=== PATIENT | female | born 1955 | race Caucasian/White ===

== ENCOUNTER 2018-05-05 16:32 | Outpatient (CLI) | payer BC ==
--- NOTE | 2018-05-05 19:41 | RAD ---
LEFT FOOT THREE VIEWS: 05/05/2018 COMPARISON: No prior films are available for comparison. FINDINGS: There is a fracture at the base of the fifth metatarsal. There is very slight distraction of the fra cture fragment from the remainder of the bone, but minimal lateral displacement. Some mild degenerat amanda changes may be present between the navicula and first cuneiform. Degenerative changes are also s uggested in the tarsometatarsal joints in general, though this is not shown to the best advantage. N o other fractures are definitely appreciated. There is a line in the proximal phalanx of the great t oe on one view, but I could not substantiate it on other views. This should be correlated with the c linical exam. If there were pain here, then isolated great toe views would be suggested. IMPRESSION: 1. Fracture at the base of the fifth metatarsal, apparently fairly recent. Very slight distraction. 2. Equivocal line in the proximal phalanx of the great toe, on one view only, probably artifactual, but the finding should be compared with the physical examination to determine if followup is needed o r not. 3. Some intertarsal/tarsometatarsal degenerative change, as noted. CODE T POS: HOME
== END 2018-05-05 16:33 | disposition home or self-care (01) ==
LOC: BURRAD 16:32
PROVIDERS: ATTEND Podiatrist Foot & Ankle Surgery
DX: S92.352A Displaced fracture of fifth metatarsal bone, left foot, initial encounter for closed fracture (principal); M19.072 Primary osteoarthritis, left ankle and foot

== ENCOUNTER 2018-06-23 15:41 | Outpatient (CLI) | payer MEDICARE ==
--- NOTE | 2018-06-27 07:41 | RAD ---
LEFT FOOT THREE VIEWS: 06/23/18 Comparison is made with the prior study of 05/05/18. There has been partial healing of the fracture at the base of the fifth metatarsal. It is not complet karl healed as of yet. The equivocal line in the proximal phalanx of the great toe is again noted and has not changed. I suspect that there may have been an old injury here in the distant past. As noted previously, there are degenerative changes in the tarsometatarsal joints. No new fractures were appr eciated. IMPRESSION: Minimal change since the prior study. Partial healing of the fifth metatarsal fracture. No other acut e findings. POS: HOME
== END 2018-06-23 15:42 | disposition home or self-care (01) ==
LOC: BURRAD 15:41
PROVIDERS: ATTEND Podiatrist Foot & Ankle Surgery
DX: S92.352D Displaced fracture of fifth metatarsal bone, left foot, subsequent encounter for fracture with routine healing (principal)

== ENCOUNTER 2018-07-21 15:17 | Outpatient (CLI) | payer MEDICARE ==
--- NOTE | 2018-07-21 22:43 | RAD ---
LEFT FOOT THREE VIEWS: 07/21/18 Comparison is made with the prior study of 06/23. Again seen is the fracture at the base of the fifth metatarsal. While there has probably been a little bit of healing in the interval, the fracture line is still quite apparent. Elsewhere, degenerative changes are prominent in some of the tarsometatarsa l joints. IMPRESSION: Slow healing of the fifth metatarsal fracture. POS: HOME
== END 2018-07-21 15:18 | disposition home or self-care (01) ==
LOC: BURRAD 15:17
PROVIDERS: ATTEND Podiatrist Foot & Ankle Surgery
DX: S92.352D Displaced fracture of fifth metatarsal bone, left foot, subsequent encounter for fracture with routine healing (principal)

== ENCOUNTER 2020-11-13 15:27 | Outpatient (CLI) | payer MEDICARE ==
--- NOTE | 2020-11-13 19:35 | RAD ---
LUMBAR SPINE FIVE VIEWS: 11/13/20 Comparison is made with the 02/03/10 study. No acute fracture was present, though the superior end plate of L4 is beginning to look scalloped. In a patient with osteopenia, this could be the beginnings of some slight compression. The same might b e said for the superior portion of T11. The major chemical cell changer time is evidence of disc space narrowing with disc degeneration at L3-L4 and L4 -L5. There have been substantial changes here in the interval. MRI would be most sensitive at looking for any neural impingement. The SI joints appear normal. The aorta shows calcification, a little mor e so than it did in 2010. IMPRESSION: 1. Interval significant disc degeneration at L3-L4 and L4-L5. 2. Scalloping of the superior end plate of L3 and possibly T11. Given osteopenia, the beginnings of some early compression may be starting here. POS: HOME
== END 2020-11-13 15:28 | disposition home or self-care (01) ==
LOC: BURRAD 15:27
PROVIDERS: ATTEND Family Medicine
DX: M51.16 Intervertebral disc disorders with radiculopathy, lumbar region (principal); G89.29 Other chronic pain; R26.81 Unsteadiness on feet
CPT/HCPCS: 72110

== ENCOUNTER 2022-01-04 18:04 | Emergency (ER) | payer MEDICARE ==
[2022-01-04] MEDS ORDERED: Ketamine 50 MG/ML (10ML VIAL) ONE (19:01)
== END 2022-01-04 20:56 | disposition home or self-care (01) ==
LOC: BURERS 18:04
DX: S82.841A Displaced bimalleolar fracture of right lower leg, initial encounter for closed fracture (principal); I10 Essential (primary) hypertension; E03.9 Hypothyroidism, unspecified; W18.30XA Fall on same level, unspecified, initial encounter; X50.1XXA Overexertion from prolonged static or awkward postures, initial encounter; Y92.512 Supermarket, store or market as the place of occurrence of the external cause
CPT/HCPCS: 27810; 99152

== ENCOUNTER 2022-10-12 15:31 | Outpatient (CLI) | payer MEDICARE | END 2022-10-12 15:32 | disposition home or self-care (01) | LOC: BURRAD 15:31 | PROVIDERS: ATTEND Family Medicine | DX: M25.471 Effusion, right ankle (principal); Z98.890 Other specified postprocedural states ==

== ENCOUNTER 2023-05-27 10:54 | Emergency (ER) | payer MEDICARE | END 2023-05-27 12:15 | disposition home or self-care (01) | LOC: BURERS 10:54 | DX: S93.601A Unspecified sprain of right foot, initial encounter (principal); I10 Essential (primary) hypertension; E03.9 Hypothyroidism, unspecified; X50.1XXA Overexertion from prolonged static or awkward postures, initial encounter ==

== ENCOUNTER 2024-07-27 09:33 | Emergency (ER) | payer MEDICARE, OTHER ==
[2024-07-27] MEDS ORDERED: Amoxicillin/Potassium Clav 875 MG TAB ONE (10:29)
== END 2024-07-27 10:34 | disposition home or self-care (01) ==
LOC: BURERS 09:33
DX: S61.052A Open bite of left thumb without damage to nail, initial encounter (principal); S61.032A Puncture wound without foreign body of left thumb without damage to nail, initial encounter; E11.9 Type 2 diabetes mellitus without complications; I10 Essential (primary) hypertension; W55.01XA Bitten by cat, initial encounter
CPT/HCPCS: 99283